=== PATIENT | female | born 1950 | race Caucasian/White ===

== ENCOUNTER → 2019-10-28 | Emergency (ER) | payer MEDICARE, OTHER ==
[~2019-10-28] MED LIST: SODIUM CHLORIDE 0.9% 1,000 ML IV ONE; cefTRIAXone 1GM/50ML D5W 50 ML IV ONE
[2019-10-28 15:42] LABS: Basophils # (auto) 0.1 10 ^3/uL (0-0.2); Basophils % (auto) 0.6 % (0.0-2.0); Eosinophils # (auto) 0 10 ^3/uL (0-0.8); Eosinophils % (auto) 0.1 % (0.0-7.0); Hematocrit 51.2 % (36.0-46.0); Hemoglobin 17.4 g/dL (12.2-16.2); Mean Corpuscular Hemoglobin 31.8 pg (28.0-32.0); Mean Corpuscular Volume 93.5 fL (80.0-100.0); Monocytes % (auto) 6.2 % (0.0-12.0); Neutrophils % (auto) 87.1 % (37.0-80.0); Nucleated Red Blood Cells % 0.2 %; Platelet Count (auto) 303 10^3/uL (140-450); Red Blood Cells 5.48 10^6/uL (4.0-5.20); Red Cell Distribution Width 13.5 % (11.8-14.3); White Blood Cell 16.1 10^3/uL (4.4-10.8)
[2019-10-28 15:59] LABS: Albumin 4.4 g/dL (3.4-5.0); BUN/Creatinine Ratio 15.3; Calcium 9.4 mg/dL (8.5-10.1); Magnesium 2.3 mg/dL (1.6-2.6); Potassium 3.4 mmol/L (3.5-5.1)
[2019-10-28 16:01] LABS: Bilirubin, Total 1.3 mg/dL (0.2-1.0); Total Protein 8.4 g/dL (6.4-8.2)
[2019-10-28 16:12] LABS: Salicylate 2.3 mg/dL (2.8-20.0)
[2019-10-28 16:21] LABS: Acetaminophen < 2.0 ug/mL (10-30)
[2019-10-28 22:07] LABS: Urine Bacteria FEW /hpf (None Seen); Urine Blood 1+ /uL (Negative); Urine Hyaline Cast MANY /lpf (0 - 2); Urine Mucus FEW (None Seen); Urine Specific Gravity 1.019 (1.001-1.035); Urine WBC 1739 /hpf (0 - 5)
[2019-10-28 22:50] VITALS: BP 158/91
== END | disposition home or self-care (01) ==
LOC: ER 13:57 → EDBD 13:57
DX: A41.9 Sepsis, unspecified organism (principal); N39.0 Urinary tract infection, site not specified; N18.3 Chronic kidney disease, stage 3 (moderate); R73.9 Hyperglycemia, unspecified; F32.9 Major depressive disorder, single episode, unspecified; Z90.710 Acquired absence of both cervix and uterus
CPT/HCPCS: 36415; 71045; 80053; 80320; 80329; 81001; 83735; 85025; 93005; 96365; 99285; J0696; J7030

== ENCOUNTER 2019-10-29 06:50 | Emergency (ER) | payer MEDICARE, OTHER ==
[~2019-10-29] VITALS: Ht 162.6 cm; Wt 63.5 kg
[2019-10-29] MEDS ORDERED: AMMONIA 0.33 ML INHALANT IN ONE ×2 (08:00→08:01)
[2019-10-29] MEDS ORDERED: SODIUM CHLORIDE 0.9% 500 ML IV ONE (08:38)
[2019-10-29] MEDS ORDERED: SODIUM CHLORIDE 0.9% 1,000 ML IV ONE (08:38)
[2019-10-29] MEDS ORDERED: cefTRIAXone 1GM/50ML D5W 50 ML IV ONE (08:45)
[2019-10-29] MEDS ORDERED: POTASSIUM EFFERVESENT TAB 25 MEQ PO ONE (08:45)
[2019-10-30] MEDS ORDERED: LORazepam 0.5 MG TAB PO ONE (07:59)
[2019-10-30] MEDS ORDERED: LORazepam 0.5 MG TAB PO PRN (08:00)
[2019-10-31 20:10] VITALS: BP 142/88
== END 2019-10-31 19:21 | disposition short-term general hospital (02) ==
LOC: ER 06:50 → EDBD 06:50 → ER 10-31 19:21
DX: F30.13 Manic episode, severe, without psychotic symptoms (principal); E11.65 Type 2 diabetes mellitus with hyperglycemia; N39.0 Urinary tract infection, site not specified; E11.21 Type 2 diabetes mellitus with diabetic nephropathy; R41.82 Altered mental status, unspecified; E87.6 Hypokalemia; K44.9 Diaphragmatic hernia without obstruction or gangrene; Z90.710 Acquired absence of both cervix and uterus
CPT/HCPCS: 70450; 96361; 96365; 99285; J0696; J7030; J7040